=== PATIENT | female | born 1950 | race Caucasian/White ===

== ENCOUNTER 2019-04-11 11:09 | Emergency (ER) | payer OTHER ==
[~2019-04-11] VITALS: Ht 152.4 cm; Wt 54.4 kg
[2019-04-11] MEDS ORDERED: NORVASC10 MG PO (11:26)
[2019-04-11] MEDS ORDERED: COZAAR50 MG PO (11:26)
[2019-04-11] MEDS ORDERED: [UNRECOGNIZED DRUG - OTHER] PO (11:27)
== END 2019-04-11 17:57 | disposition home or self-care (01) ==
LOC: ER 11:09
DX: B02.8 Zoster with other complications (principal)

== ENCOUNTER 2023-01-21 11:29 | Inpatient (IN) | payer OTHER ==
[~2023-01-21] VITALS: Ht 149.9 cm; Wt 57.6 kg
[~2023-01-21 11:29] MED LIST: COZAAR50 MG PO; NORVASC10 MG PO; [UNRECOGNIZED DRUG - OTHER] PO
[2023-01-22] MEDS ORDERED: LIPIT PO (09:43)
[2023-01-28] MEDS ORDERED: ARTHRITIS PAIN50 GM (15:32)
[2023-01-28] MEDS ORDERED: METOPROLOL SUCC25 MG (15:32)
[2023-01-28] MEDS ORDERED: ATORVASTATIN CA10 MG (15:32)
[2023-01-28] MEDS ORDERED: LUMIGAN2.5 M1 (15:32)
[2023-01-29] MEDS ORDERED: PERCOCET 5-3251 EACH PO (07:40)
[2023-01-29] MEDS ORDERED: ELIQUIS2.5 MG PO (07:40)
[2023-01-29] MEDS ORDERED: DUI500 PO (07:40)
== END 2023-01-30 19:27 | disposition short-term general hospital, planned readmission (82) | DRG 470 ==
LOC: SURG 01-28 05:55 → O/R 01-28 05:55 → SURH 01-28 07:30 → SURG 01-28 18:51
PROVIDERS: ADMIT Orthopaedic Surgery; ATTEND Orthopaedic Surgery
PROC: 0SRC0J9 Replacement of Right Knee Joint with Synthetic Substitute, Cemented, Open Approach (ICD-10-PCS; principal; 2023-01-28 09:40)
DX: M17.11 Unilateral primary osteoarthritis, right knee (principal); M22.11 Recurrent subluxation of patella, right knee; E66.01 Morbid (severe) obesity due to excess calories

== ENCOUNTER 2024-10-05 07:24 | Outpatient (CLI) | payer OTHER ==
[~2024-10-05 07:24] MED LIST changes: +ARTHRITIS PAIN50 GM; +ATORVASTATIN CA10 MG; +DUI500 PO; +ELIQUIS2.5 MG PO; +LIPIT PO; +LUMIGAN2.5 M1; +METOPROLOL SUCC25 MG; +PERCOCET 5-3251 EACH PO
== END 2024-10-05 07:28 | disposition home or self-care (01) ==
LOC: TOM 07:24
DX: Z12.11 Encounter for screening for malignant neoplasm of colon (principal); K57.31 Diverticulosis of large intestine without perforation or abscess with bleeding; K63.89 Other specified diseases of intestine